=== PATIENT | male | born 1990 | race Caucasian/White ===

== ENCOUNTER 2016-10-29 14:59 | Emergency (ER) | payer BC ==
--- NOTE | 2016-10-29 16:55 | EDM.PDOC ---
ED HPI GENERAL MEDICAL PROBLEM - General Chief Complaint: Lower Extremity Injury/Pain Stated Complaint: PT HURT LT FOOT Time Seen by Provider: 10/29/16 15:30 Source of Information: Reports: Patient History Limitations: Reports: No Limitations - History of Present Illness INITIAL COMMENTS - FREE TEXT/NARRATIVE: HISTORY AND PHYSICAL: History of present illness: [Patient comes to emergency room complaining of left foot and ankle pain. States that last evening he was holding his son when he missed a step on some stairs falling to the ground. He was able to bear weight on his left foot for approximately 5 minutes after the fall but then it became very painful. He has been applying ice packs and elevating and resting as much as possible but the pain persists today. He has noticed swelling and mild bruising to the top of his left foot. He denies numbness or tingling. No pain shooting up his leg. ] Review of systems: As per history of present illness and below otherwise all systems reviewed and negative. Past medical history: As per history of present illness and as reviewed below otherwise noncontributory. Surgical history: As per history of present illness and as reviewed below otherwise noncontributory. Social history: No reported history of drug or alcohol abuse. Family history: As per history of present illness and as reviewed below otherwise noncontributory. Physical exam: HEENT: Atraumatic, normocephalic. Extremities: Mild swelling and ecchymosis to lateral dorsum left foot. Is tender with palpation over left lateral malleolus and dorsum of left foot. negative for cords or calf pain. Neurovascular unremarkable. Neuro: Awake, alert, oriented. Motor and sensory unremarkable throughout. Exam nonfocal. Diagnostics: [Left foot and ankle x-ray] Impression: [Left foot sprain] Plan: [Discussed with patient that his x-rays show no fracture or dislocation. Recommend that he continue ice, rest, elevation. Reviewed with him that an occult fracture may be missed on x-ray and that if his pain does not improve or worsens he should follow-up with local orthopedist. Referral information is given. Encouraged crutches and nonweightbearing until pain is improved. He is in agreement with today's plan. He is given a work note excusing him from work October 30 of October 31.] Definitive disposition and diagnosis as appropriate pending reevaluation and review of above. left ankle Pain Score (Numeric/FACES): 7 - Related Data Allergies Allergy/AdvReac Type Severity Reaction Status Date / Time No Known Allergies Allergy Verified 10/29/16 15:14 Home Meds: Home Meds . [No Known Home Meds] 04/16/14 [History] Past Medical History - Past Health History Medical/Surgical History: Denies Medical/Surgical History Social & Family History - Tobacco Use Smoking Status *Q: Current Some Day Smoker Years of Tobacco use: 6 - Alcohol Use Days Per Week of Alcohol Use: 3 Number of Drinks Per Day: 2 Total Drinks Per Week: 6 - Recreational Drug Use Recreational Drug Use: Yes Drug Use in Last 12 Months: No Recreational Drug Type: Reports: Marijuana/Hashish Review of Systems - Review of Systems Review Of Systems: ROS reveals no pertinent complaints other than HPI. ED EXAM, GENERAL - Physical Exam Exam: See Below Course - Vital Signs Last Recorded V/S: Last Vital Signs Temp 97.8 F 10/29/16 15:14 Pulse 107 H 10/29/16 15:14 Resp 18 10/29/16 15:14 BP 142/84 H 10/29/16 15:14 Pulse Ox 97 10/29/16 15:14 - Orders/Labs/Meds Orders: Active Orders 24 hr Category Date Time Status Ankle Min 3V Lt [CR] Stat Exams 10/29/16 15:37 Taken Foot 2V Lt [CR] Stat Exams 10/29/16 15:37 Taken Departure - Departure Time of Disposition: 17:00 Disposition: Home, Self-Care 01 Condition: Good Clinical Impression: Left foot pain - Discharge Information Forms: ED Department Discharge Additional Instructions: The following information is given to patients seen in the emergency department who are being discharged to home. This information is to outline your options for follow-up care. We provide all patients seen in our emergency department with a follow-up referral. The need for follow-up, as well as the timing and circumstances, are variable depending upon the specifics of your emergency department visit. If you don't have a primary care physician on staff, we will provide you with a referral. We always advise you to contact your personal physician following an emergency department visit to inform them of the circumstance of the visit and for follow-up with them and/or the need for any referrals to a consulting specialist. The emergency department will also refer you to a specialist when appropriate. This referral assures that you have the opportunity for follow-up care with a specialist. All of these measure are taken in an effort to provide you with optimal care, which includes your follow-up. Under all circumstances we always encourage you to contact your private physician who remains a resource for coordinating your care. When calling for follow-up care, please make the office aware that this follow-up is from your recent emergency room visit. If for any reason you are refused follow-up, please contact the [facility] emergency department at and asked to speak to the emergency department charge nurse. [facility] [address] [place] [address], [address] [place] [address] Follow-up with your primary care provider in the next 3-4 days. Rest ice elevation, Tylenol or ibuprofen as needed for discomfort. Return to ER as needed as discussed. - My Orders Last 24 Hours: My Active Orders 10/29/16 15:37 Ankle Min 3V Lt [CR] Stat Foot 2V Lt [CR] Stat - Assessment/Plan Last 24 Hours: My Active Orders 10/29/16 15:37 Ankle Min 3V Lt [CR] Stat Foot 2V Lt [CR] Stat
[2016-10-29 18:41] VITALS: BP 128/72
--- NOTE | 2016-10-30 13:53 | CR ---
EXAM DATE: 10/29/16 PATIENT'S AGE: 25 Patient: NICOLE THOMPSON Facility: [place], [place] Site . Site : 1990 Study: XRay Extremity Left [id number] ankle-10/29/2016 3:54:35 PM Ordering Physician: Doctor Meyer Final Report: INDICATION: Pain after a fall. Technique: Three views of the left ankle. Findings: No acute fracture or dislocation. The mortise is uniform. Soft tissues are intact. Impression: Negative left ankle. Dictated by Kenyatta Kwon MD @ Oct 29 2016 4:29PM (Electronic Signature) Report Signed by Proxy. RUPALI
--- NOTE | 2016-10-30 13:54 | CR ---
EXAM DATE: 10/29/16 PATIENT'S AGE: 25 Patient: NICOLE THOMPSON Facility: [place], [place] Site . Site : 1990 Study: XRay Extremity Left [id number] foot-10/29/2016 3:54:50 PM Ordering Physician: Doctor Meyer Final Report: INDICATION: Pain after fall. Technique: Two views of the left foot. Findings: No acute fracture or dislocation. Joint spaces are maintained. Soft tissues are unremarkable. Impression: Negative left foot. Dictated by Kenyatta Kwon MD @ Oct 29 2016 4:29PM (Electronic Signature) Report Signed by Proxy. RUPALI
== END 2016-10-29 17:05 | disposition home or self-care (01) ==
LOC: MW.ED 14:59
DX: S93.602A Unspecified sprain of left foot, initial encounter (principal); F17.210 Nicotine dependence, cigarettes, uncomplicated; W10.9XXA Fall (on) (from) unspecified stairs and steps, initial encounter
CPT/HCPCS: 73610-26-LT; 73610-LT; 73620-26-LT; 73620-LT; 99282; 99283

== ENCOUNTER 2016-11-01 19:53 | Emergency (ER) | payer BC ==
--- NOTE | 2016-11-01 20:06 | EDM.PDOC ---
ED HPI GENERAL MEDICAL PROBLEM - General Chief Complaint: Lower Extremity Injury/Pain Stated Complaint: PT HURT LT ANKLE Time Seen by Provider: 11/01/16 20:01 Source of Information: Reports: Patient History Limitations: Reports: No Limitations - History of Present Illness INITIAL COMMENTS - FREE TEXT/NARRATIVE: History of present illness: [25-year-old male returns to the ER with continued complaints of ankle pain. Patient was seen and diagnosed with an ankle sprain and has not followed up with a PCP.] Review of systems: As per history of present illness and below otherwise all systems reviewed and negative. Past medical history: As per history of present illness and as reviewed below otherwise noncontributory. Surgical history: As per history of present illness and as reviewed below otherwise noncontributory. Social history: No reported history of drug or alcohol abuse. Family history: As per history of present illness and as reviewed below otherwise noncontributory. Physical exam: HEENT: Atraumatic, normocephalic, pupils reactive, negative for conjunctival pallor or scleral icterus, mucous membranes moist, throat clear, neck supple, nontender, trachea midline. Lungs: Clear to auscultation, breath sounds equal bilaterally, chest nontender. Heart: S1S2, regular, negative for clicks, rubs, or JVD. Abdomen: Soft, nondistended, nontender. Negative for masses or hepatosplenomegaly. Negative for costovertebral tenderness. Pelvis: Stable nontender. Genitourinary: Deferred. Rectal: Deferred. Extremities: left ankle pain on plantar and dorsi flexion, negative for cords or calf pain. Neurovascular unremarkable. Neuro: Awake, alert, oriented. Cranial nerves II through XII unremarkable. Cerebellum unremarkable. Motor and sensory unremarkable throughout. Exam nonfocal. Patient is not wearing any sort of support not the Yosef wrap provided and/or any ankle wrap X-ray unchanged from previous x-ray Diagnostics: X-ray of left ankle[] Therapeutics: [] Impression: [Ankle pain] Plan: [Continue using Yosef wrap and support follow-up with PCP] Definitive disposition and diagnosis as appropriate pending reevaluation and review of above. left ankle Pain Score (Numeric/FACES): 7 - Related Data Allergies Allergy/AdvReac Type Severity Reaction Status Date / Time No Known Allergies Allergy Verified 11/01/16 19:57 Home Meds: Home Meds . [No Known Home Meds] 04/16/14 [History] Past Medical History - Past Health History Medical/Surgical History: Denies Medical/Surgical History HEENT History: Reports: None Cardiovascular History: Reports: None Respiratory History: Reports: None Gastrointestinal History: Reports: None Genitourinary History: Reports: None Musculoskeletal History: Reports: None Neurological History: Reports: None Psychiatric History: Reports: None Endocrine/Metabolic History: Reports: None Hematologic History: Reports: None Immunologic History: Reports: None Oncologic (Cancer) History: Reports: None Dermatologic History: Reports: None - Infectious Disease History Infectious Disease History: Reports: None Social & Family History - Family History Family Medical History: Noncontributory - Tobacco Use Smoking Status *Q: Current Some Day Smoker Years of Tobacco use: 6 Packs/Tins Daily: 0.5 - Caffeine Use Caffeine Use: Reports: Energy Drinks - Alcohol Use Days Per Week of Alcohol Use: 3 Number of Drinks Per Day: 2 Total Drinks Per Week: 6 - Recreational Drug Use Recreational Drug Use: Yes Drug Use in Last 12 Months: No Recreational Drug Type: Reports: Marijuana/Hashish Review of Systems - Review of Systems Review Of Systems: See Below (See history of present illness) ED EXAM, GENERAL - Physical Exam Exam: See Below (See history of present illness) Course - Vital Signs Last Recorded V/S: Last Vital Signs Temp 36.6 C 11/01/16 19:57 Pulse 73 11/01/16 19:57 Resp 18 11/01/16 19:57 BP 142/70 H 11/01/16 19:57 Pulse Ox 97 11/01/16 19:57 - Orders/Labs/Meds Orders: Active Orders 24 hr Category Date Time Status Ankle Min 3V Lt [CR] Stat Exams 11/01/16 20:10 Taken Departure - Departure Time of Disposition: 21:28 Disposition: Home, Self-Care 01 Condition: Good Clinical Impression: Left foot pain - Discharge Information Forms: ED Department Discharge Additional Instructions: The following information is given to patients seen in the emergency department who are being discharged to home. This information is to outline your options for follow-up care. We provide all patients seen in our emergency department with a follow-up referral. The need for follow-up, as well as the timing and circumstances, are variable depending upon the specifics of your emergency department visit. If you don't have a primary care physician on staff, we will provide you with a referral. We always advise you to contact your personal physician following an emergency department visit to inform them of the circumstance of the visit and for follow-up with them and/or the need for any referrals to a consulting specialist. The emergency department will also refer you to a specialist when appropriate. This referral assures that you have the opportunity for follow-up care with a specialist. All of these measure are taken in an effort to provide you with optimal care, which includes your follow-up. Under all circumstances we always encourage you to contact your private physician who remains a resource for coordinating your care. When calling for follow-up care, please make the office aware that this follow-up is from your recent emergency room visit. If for any reason you are refused follow-up, please contact the [facility] Emergency Department at and asked to speak to the emergency department charge nurse. Using the support provided Use [id number] pain medicine Follow up with PCP 1-2 days [facility] [address] [place] [id number] - My Orders Last 24 Hours: My Active Orders 11/01/16 20:10 Ankle Min 3V Lt [CR] Stat - Assessment/Plan Last 24 Hours: My Active Orders 11/01/16 20:10 Ankle Min 3V Lt [CR] Stat
[2016-11-01 21:44] VITALS: BP 122/73
--- NOTE | 2016-11-02 10:51 | CR ---
EXAM DATE: 11/01/16 PATIENT'S AGE: 25 Patient: NICOLE THOMPSON Facility: [place], [place] Site . Site : 1990 Study: XRay Extremity Left [id number]/2/2017 8:41:30 PM Ordering Physician: Doctor Meyer Final Report: INDICATION: Pain. COMPARISON: 10/29/2016. FINDINGS/IMPRESSION: Unchanged tiny flake-like density along the dorsal aspect of the anterior talus , possibly representing a minimally displaced avulsion fracture, age uncertain. No other evidence for fracture identified. Normal ankle mortise. Soft tissues are within normal limits. Dictated by Colin Mcfadden MD @ 11/01/2016 8:54:59 PM Dictated by: Colin Mcfadden MD @ 11/01/2016 20:56:13 (Electronic Signature) Report Signed by Proxy. RUPALI
== END 2016-11-01 21:42 | disposition home or self-care (01) ==
LOC: MW.ED 19:53
DX: M25.572 Pain in left ankle and joints of left foot (principal); F17.210 Nicotine dependence, cigarettes, uncomplicated
CPT/HCPCS: 73610-26-LT; 73610-LT; 99282; 99283